=== PATIENT | female | born 1965 | race Caucasian/White ===

== ENCOUNTER → 2016-05-17 | Outpatient (CLI) | payer BC ==
[~2016-05-17] MED LIST: BENADRYL25 M2 PO; CEPHALEXIN500 M1 PO; MULTIPLE VITAMI1 CAP PO; NORCO 325 MG-51 TAB PO; NORCO 325 MG-7.1 TAB PO; PROZAC 10MG10 MG PO; PROZAC 20MG20 MG PO
== END ==
LOC: MC.RAD 09:58
DX: N63 Unspecified lump in breast (principal)

== ENCOUNTER → 2016-05-24 | Outpatient (CLI) | payer BC | LOC: MC.RAD 11:00 | DX: N63 Unspecified lump in breast (principal); R92.8 Other abnormal and inconclusive findings on diagnostic imaging of breast ==

== ENCOUNTER → 2016-05-30 | Outpatient (CLI) | payer BC | LOC: MC.RAD 09:52 | DX: D48.62 Neoplasm of uncertain behavior of left breast (principal) ==

== ENCOUNTER → 2018-06-04 | Outpatient (CLI) | payer OTHER | LOC: MC.RAD 10:19 | DX: Z12.31 Encounter for screening mammogram for malignant neoplasm of breast (principal) ==

== ENCOUNTER 2018-07-01 07:00 | Day surgery (SDC) | payer OTHER ==
[~2018-07-01] VITALS: Ht 170.2 cm; Wt 119.9 kg
[2018-07-01 07:32] VITALS: BP 156/83; PULSE 80; TEMP 97.1
[2018-07-01] MEDS ORDERED: PROTONIX20 MG PO (07:55)
[2018-07-01] MEDS ORDERED: ULTRAM 50MG TAB50 MG PO (07:56)
[2018-07-01] MEDS ORDERED: MOTRIN 400400 MG/TAB PO (07:57)
[2018-07-01] MEDS ORDERED: VITAMIN D250 MCG (07:58)
[2018-07-01] MEDS ORDERED: [UNRECOGNIZED DRUG - CODE] IJ (07:59)
[2018-07-01 09:05] VITALS: BP 121/65; PULSE 70; TEMP 97.2
--- NOTE | 2018-07-01 09:05 | NUR ---
Patient arives back to [facility] alert, denies pain or nausea. Patient monitor applied, vitals stable. Spouse at bedside. Patient given juice, coffee, and muffin.
[2018-07-01 09:20] VITALS: BP 117/56; PULSE 77
--- NOTE | 2018-07-01 09:20 | NUR ---
Patient tolerated juice, coffee, and muffin without any nausea. Reports she is feeling great and is ready to go home. IV discontinued, patient getting dressed.
--- NOTE | 2018-07-01 09:30 | NUR ---
Dr Sharpe into see patient at this time.
--- NOTE | 2018-07-01 09:40 | NUR ---
Dismissal instructions gone over with patient and patient's spouse. Both verbalize understanding and all questions answered.
== END 2018-07-01 09:45 | disposition home or self-care (01) ==
LOC: SDCO 07:00
DX: Z12.11 Encounter for screening for malignant neoplasm of colon (principal); K63.5 Polyp of colon; K57.30 Diverticulosis of large intestine without perforation or abscess without bleeding; F41.9 Anxiety disorder, unspecified; Z79.899 Other long term (current) drug therapy; Z90.710 Acquired absence of both cervix and uterus; Z98.84 Bariatric surgery status
CPT/HCPCS: J2250; J2405; J3010; J7030

== ENCOUNTER 2018-08-11 12:33 | Emergency (ER) | payer OTHER ==
[~2018-08-11] VITALS: Ht 170.2 cm; Wt 118.2 kg
[~2018-08-11 12:33] MED LIST changes: +MOTRIN 400400 MG/TAB PO; +PROTONIX20 MG PO; +ULTRAM 50MG TAB50 MG PO; +VITAMIN D250 MCG; +[UNRECOGNIZED DRUG - CODE] IJ
[2018-08-11 12:35] VITALS: TEMP 97.8
[2018-08-11 14:34] VITALS: BP 164/80
[2018-08-11] MEDS ORDERED: PERCOCET 325 MG1 TA2 PO (14:52)
[2018-08-11 15:30] VITALS: PULSE 72
== END 2018-08-11 15:30 | disposition home or self-care (01) ==
LOC: COL.ER 12:33
DX: S82.851A Displaced trimalleolar fracture of right lower leg, initial encounter for closed fracture (principal); Z90.710 Acquired absence of both cervix and uterus; X50.1XXA Overexertion from prolonged static or awkward postures, initial encounter; Y92.410 Unspecified street and highway as the place of occurrence of the external cause
CPT/HCPCS: J1170; J2405; J7030; Q4045

== ENCOUNTER → 2021-01-19 | Outpatient (CLI) | payer OTHER ==
[~2021-01-19] MED LIST changes: +PERCOCET 325 MG1 TA2 PO
== END ==
LOC: MC.RAD 14:20
DX: Z12.31 Encounter for screening mammogram for malignant neoplasm of breast (principal)

== ENCOUNTER → 2023-07-25 | Outpatient (CLI) | payer OTHER | LOC: MC.RAD 08:50 | DX: Z12.31 Encounter for screening mammogram for malignant neoplasm of breast (principal) ==